=== PATIENT | female | born 1950 | race Asian ===

== ENCOUNTER 2021-03-05 11:26 | Emergency (ER) | payer MEDICARE, MEDICAID ==
[~2021-03-05] VITALS: Ht 147.3 cm; Wt 61.4 kg
[2021-03-05 12:08] VITALS: BP 206/84
== END 2021-03-06 | disposition home or self-care (01) ==
LOC: ER 03-06 00:29
DX: S00.11XA Contusion of right eyelid and periocular area, initial encounter (principal); S00.83XA Contusion of other part of head, initial encounter; S09.8XXA Other specified injuries of head, initial encounter; E11.9 Type 2 diabetes mellitus without complications; W19.XXXA Unspecified fall, initial encounter; Y93.89 Activity, other specified; Y92.89 Other specified places as the place of occurrence of the external cause; Y99.8 Other external cause status
CPT/HCPCS: 70450; 70486; 73130; 99283; 99284

== ENCOUNTER 2023-04-28 09:26 | Inpatient (IN) | payer MEDICARE, MEDICAID ==
[~2023-04-28] VITALS: Ht 147.3 cm; Wt 43.6 kg
[2023-04-28] MEDS ORDERED: iohexol 350MG/ML 100ml bottle IV ONE (09:34)
[2023-04-28 09:57] LABS: BASOPHILS # (AUTO) 0.1 X10'3 (0-0.2); BASOPHILS % (AUTO) 1.6 % (0-1); EOSINOPHILS # (AUTO) 0.1 X10'3 (0-0.9); EOSINOPHILS % (AUTO) 0.7 % (0-6); HEMATOCRIT 35.3 % (35.0-45.0); HEMOGLOBIN 11.9 g/dl (12.0-16.0); LYMPHOCYTES # (AUTO) 1.1 X10'3 (1.1-4.8); LYMPHOCYTES % (AUTO) 13.3 % (21-51); MEAN CORPUSCULAR HEMOGLOBIN 30.6 PG (27.0-31.0); MEAN CORPUSCULAR HGB CONC 33.7 g/dL (33.0-36.5); MEAN PLATELET VOLUME 10.9 FL (7.4-10.4); MONOCYTES # (AUTO) 0.3 X10'3 (0-0.9); MONOCYTES % (AUTO) 3.4 % (2-12); NEUTROPHILS # (AUTO) 6.7 X10'3 (1.8-7.7); PLATELET COUNT 181 X10'3 (140-440); RED BLOOD COUNT 3.87 X10'6 (4.20-5.60); WHITE BLOOD COUNT 8.2 X10'3 (4.5-11.0)
[2023-04-28 09:59] LABS: APTT 31 SECONDS (22-32); PROTHROMBIN TIME 10.7 SECONDS (9.0-12.0)
[2023-04-28 10:03] LABS: ALANINE AMINOTRANSFERASE 35 U/L (12-78); ALBUMIN 2.6 G/DL (3.4-5.0); ALBUMIN/GLOBULIN RATIO 0.5 (1.1-1.5); ALKALINE PHOSPHATASE 96 IU/L (46-116); ANION GAP 10 (8-16); ASPARTATE AMINO TRANSFERASE 48 U/L (10-37); BILIRUBIN,TOTAL 0.3 MG/DL (0.1-1.0); BLOOD UREA NITROGEN 41 MG/DL (7-18); CHLORIDE 103 MMOL/L (99-107); CREATININE 1.17 MG/DL (0.40-0.90); GLUCOSE 216 MG/DL (70-104); POTASSIUM 5.2 MMOL/L (3.5-5.1); SODIUM 138 MMOL/L (135-145); TOTAL CARBON DIOXIDE 25.4 MMOL/L (24-32); TOTAL PROTEIN 7.7 G/DL (6.4-8.2); eCRCL 28 ML/MIN; eGFR 45 ML/MIN
[2023-04-28 10:17] LABS: CREATINE KINASE 90 U/L (26-192); CREATINE KINASE MB 3.4 ng/ml (0.3-3.6)
[2023-04-28 10:20] LABS: THYROID STIMULATING HORMONE 7.19 ulU/ml (0.34-4.50)
[2023-04-28] MEDS ORDERED: labetalol 20mg/4ml (5mg/ml) syringe IV ONE (10:20)
[2023-04-28] MEDS ORDERED: sodium chloride inj. 154 MEQ in Dextrose 10%-water IV solution 961.5 ML IV SCH (10:20)
[2023-04-28 10:26] LABS: PLATELET ESTIMATE NORMAL
[2023-04-28 10:29] LABS: GIANT PLATELET FEW; LARGE PLATELETS FEW
[2023-04-28] MEDS ORDERED: dextrose 5%-water 1,000 ML IV SCH (10:40)
[2023-04-28] MEDS ORDERED: DEXTROSE 15 GM of carb/4 tabs (each vial/BOTTLE has 4 tablets) PO PRN ×4 (11:50→12:10)
[2023-04-28] MEDS ORDERED: dextrose 50%-water 50ml dispensing syringe IV PRN (11:50)
[2023-04-28] MEDS ORDERED: MESSAGE TO PHARMACY PO ONE ×2 (11:50→12:10)
[2023-04-28] MEDS ORDERED: glucagon, human recombinant 1mg kit SUBCUT PRN ×2 (11:50→12:10)
[2023-04-28] MEDS ORDERED: mag hydrox/Alum hydrox/simeth 30ml oral suspension PO PRN (12:10)
[2023-04-28] MEDS ORDERED: potassium Cl 20 mEq SR tablet PO PRN ×2 (12:10)
[2023-04-28] MEDS ORDERED: magnesium 4gm in 100ml NS 100 ML IV PRN (12:10)
[2023-04-28] MEDS ORDERED: magnesium Cl slow-release 64mg tablet PO PRN (12:10)
[2023-04-28] MEDS ORDERED: magnesium 2GM in 50ml NS 50 ML IV PRN (12:10)
[2023-04-28] MEDS ORDERED: magnesium hydroxide 30ml (MOM) UD suspension PO PRN (12:10)
[2023-04-28] MEDS ORDERED: ondansetron/PF 4mg/2ml inj IV PRN (12:10)
[2023-04-28] MEDS ORDERED: potassium Cl 40MEQ/1/2NS 520ml 520 ML IV PRN (12:10)
[2023-04-28] MEDS ORDERED: acetaminophen 325mg tablet PO PRN (12:10)
[2023-04-28] MEDS ORDERED: insulin Lispro (HumaLOG) vial - multi-dose SQ SCH (12:10)
[2023-04-28] MEDS ORDERED: hydrALAZINE 20mg/ml inj. IV ONE (12:40)
[2023-04-28 12:53] LABS: HEMOGLOBIN A1C 7.2 % (4.5-6.2)
[2023-04-28 12:57] LABS: MAGNESIUM 2.6 MG/DL (1.5-2.4); PRO BRAIN NATRIURETIC PEPTIDE 1357 PG/ML (0-125)
[2023-04-28 13:26] LABS: BILIRUBIN,URINE NEGATIVE (Neg); CLARITY,URINE SLIGHTLY CLOUDY (Clear); COLOR,URINE YELLOW (Yellow); GLUCOSE, URINE 250 mg/dl (Neg); KETONES,URINE NEGATIVE (Neg); LEUKOCYTE ESTERASE ,URINE NEGATIVE (Neg); NITRITES, URINE NEGATIVE (Neg); OCCULT BLOOD,URINE TRACE-INTACT (Neg); PH,URINE 6.5 (4.8-8.0); PROTEIN,URINE >=300 mg/dl (Neg); UROBILINOGEN,URINE 0.2 E.U/dL (0.2-1.0)
[2023-04-28 13:31] LABS: UA COLLECTION TYPE STRAIGHT CATH
[2023-04-28 13:46] LABS: RBC,URINE 0-2 /HPF (0-2); WBC,URINE 0-4 /HPF (0-4)
[2023-04-28 13:47] LABS: BACTERIA,URINE FEW /HPF (Neg); MUCUS STRANDS NONE SEEN /LPF (Neg); SQUAMOUS EPITHELIAL CELL,UR NONE SEEN /LPF (FEW)
[2023-04-28] MEDS: dextrose 50%-water 50ml dispensing syringe IV PRN ×5 (14:06→23:10)
[2023-04-28] MEDS ORDERED: normal saline 1000ml 1,000 ML IV SCH (14:25)
[2023-04-28] MEDS ORDERED: LidoCAINE 2% Topical Jelly 11mL syringe TOP ONE (14:25)
[2023-04-28 15:00] VITALS: BP 184/85; PULSE 71; RESP 18; TEMP 97.2; O2SAT 100
[2023-04-28 16:20] LABS: URINE AMPHETAMINE SCREEN NEGATIVE (Neg); URINE BARBITUATE SCREEN NEGATIVE (Neg); URINE BENZODIAZEPINES SCREEN NEGATIVE (Neg); URINE CANNABINOID SCREEN NEGATIVE (Neg); URINE COCAINE SCREEN NEGATIVE (Neg); URINE METHADONE SCREEN NEGATIVE (Neg); URINE OPIATE SCREEN NEGATIVE (Neg); URINE PHENCYCLIDINE SCREEN NEGATIVE (Neg)
[2023-04-28] MEDS ORDERED: dextrose 10% 250ml bag IV ONE (17:10)
[2023-04-28] MEDS ORDERED: Dextrose 10%-water IV solution 1,000 ML IV SCH (17:25)
[2023-04-28 18:00] VITALS: BP 161/83; PULSE 72; RESP 16; TEMP 98.2; O2SAT 100
[2023-04-28 20:00] VITALS: RESP 16; O2SAT 100
[2023-04-28] MEDS: K and/or MAG REPLACEMENT MC SCH (20:00)
[2023-04-28] MEDS: docusate sod 100mg capsule PO SCH (20:00)
[2023-04-28] MEDS ORDERED: DEXTROSE 10 % AND 0.45 % NACL 1,000 ML IV SCH (20:35)
[2023-04-28] MEDS: insulin glargine (Lantus) pen - multi-dose SQ SCH (21:00)
[2023-04-28] MEDS ORDERED: insulin glargine (Lantus) pen - multi-dose SQ SCH (21:00)
[2023-04-28] MEDS: Dextrose 10%-water IV solution 1,000 ML IV SCH (21:15)
[2023-04-28 22:00] VITALS: BP 146/72; PULSE 70; RESP 15; TEMP 97.8; O2SAT 95
[2023-04-29 01:00] LABS: BILIRUBIN,URINE NEGATIVE (Neg); CLARITY,URINE CLEAR (Clear); COLOR,URINE YELLOW (Yellow); GLUCOSE, URINE 250 mg/dl (Neg); KETONES,URINE NEGATIVE (Neg); LEUKOCYTE ESTERASE ,URINE NEGATIVE (Neg); NITRITES, URINE NEGATIVE (Neg); OCCULT BLOOD,URINE NEGATIVE (Neg); PROTEIN,URINE >=300 mg/dl (Neg); UROBILINOGEN,URINE 0.2 E.U/dL (0.2-1.0)
[2023-04-29 01:05] LABS: UA COLLECTION TYPE STRAIGHT CATH
[2023-04-29 01:06] LABS: SQUAMOUS EPITHELIAL CELL,UR FEW /LPF (FEW); WBC,URINE 0-4 /HPF (0-4)
[2023-04-29 01:07] LABS: BACTERIA,URINE NONE SEEN /HPF (Neg); HYALINE CASTS 0-3 /LPF (NEGATIVE); TRANSITIONAL EPI CELLS,URINE FEW /HPF
[2023-04-29 01:14] LABS: D-DIMER 1.86 MG/L FEU (0-0.50)
[2023-04-29 01:15] LABS: OSMOLALITY 289 MOSM/K (280-300)
[2023-04-29 01:30] LABS: CREATINE KINASE 207 U/L (26-192); FREE T4 (FREE THYROXINE) 0.97 NG/DL (0.73-1.40); PHOSPHORUS 3.7 MG/DL (2.3-4.5); PRO BRAIN NATRIURETIC PEPTIDE 1922 PG/ML (0-125)
[2023-04-29] MEDS: dextrose 50%-water 50ml dispensing syringe IV PRN ×2 (01:31→04:34)
[2023-04-29 07:00] VITALS: BP 143/100; PULSE 86; RESP 15; TEMP 97.8; O2SAT 97
[2023-04-29 08:00] VITALS: RESP 15; O2SAT 97
[2023-04-29] MEDS: docusate sod 100mg capsule PO SCH ×2 (08:00→20:00)
[2023-04-29] MEDS ORDERED: glucagon, human recombinant 20 MG in dextrose 5%-water 180 ML IV SCH ×2 (08:00)
[2023-04-29] MEDS: K and/or MAG REPLACEMENT MC SCH ×2 (08:00→20:00)
[2023-04-29] MEDS: methylPREDNISolone sod succ 125mg/2ml vial IV SCH ×2 (08:05→14:00)
[2023-04-29 08:15] LABS: BASOPHILS % (AUTO) 0.4 % (0-1); EOSINOPHILS # (AUTO) 0.3 X10'3 (0-0.9); EOSINOPHILS % (AUTO) 2.9 % (0-6); HEMATOCRIT 35.1 % (35.0-45.0); LYMPHOCYTES # (AUTO) 1.8 X10'3 (1.1-4.8); LYMPHOCYTES % (AUTO) 19.2 % (21-51); MEAN CORPUSCULAR HEMOGLOBIN 30.5 PG (27.0-31.0); MEAN CORPUSCULAR HGB CONC 34.1 g/dL (33.0-36.5); MEAN CORPUSCULAR VOLUME 89.3 FL (78-98); MEAN PLATELET VOLUME 11.2 FL (7.4-10.4); MONOCYTES # (AUTO) 0.6 X10'3 (0-0.9); MONOCYTES % (AUTO) 6.1 % (2-12); NEUTROPHILS # (AUTO) 6.9 X10'3 (1.8-7.7); NEUTROPHILS % (AUTO) 71.4 % (42-75); PLATELET COUNT 155 X10'3 (140-440); RED BLOOD COUNT 3.94 X10'6 (4.20-5.60); RED CELL DISTRIBUTION WIDTH 14.9 % (11.5-14.5); WHITE BLOOD COUNT 9.6 X10'3 (4.5-11.0)
[2023-04-29] MEDS ORDERED: aspirin 81mg tab.chew PO SCH (08:30)
[2023-04-29 08:38] LABS: ALANINE AMINOTRANSFERASE 23 U/L (12-78); ALBUMIN 1.7 G/DL (3.4-5.0); ALBUMIN/GLOBULIN RATIO 0.4 (1.1-1.5); ALKALINE PHOSPHATASE 76 IU/L (46-116); ANION GAP 7 (8-16); ASPARTATE AMINO TRANSFERASE 35 U/L (10-37); BILIRUBIN,TOTAL 0.4 MG/DL (0.1-1.0); BLOOD UREA NITROGEN 27 MG/DL (7-18); BUN/CREATININE RATIO 25.5 (10.0-20.0); CHLORIDE 101 MMOL/L (99-107); CHOL/HDL RATIO 4.7 (0.00-4.99); CHOLESTEROL 307 MG/DL (0-200); CREATININE 1.06 MG/DL (0.40-0.90); GLUCOSE 213 MG/DL (70-104); HDL CHOLESTEROL 66 MG/DL (35-60); LDL CHOLESTEROL 200 MG/DL (50-100); MAGNESIUM 2.2 MG/DL (1.5-2.4); POTASSIUM 3.4 MMOL/L (3.5-5.1); SODIUM 133 MMOL/L (135-145); TOTAL CARBON DIOXIDE 25.1 MMOL/L (24-32); TOTAL PROTEIN 5.6 G/DL (6.4-8.2); TRIGLYCERIDES 80 MG/DL (20-135); eCRCL 31 ML/MIN; eGFR 51 ML/MIN
[2023-04-29 11:00] VITALS: BP 177/85; PULSE 76; RESP 16; TEMP 98.2; O2SAT 98
[2023-04-29] MEDS ORDERED: GABA-530 PO (11:30)
[2023-04-29] MEDS ORDERED: HYDR25TA5 PO (11:30)
[2023-04-29] MEDS ORDERED: DILT-88 PO (11:30)
[2023-04-29] MEDS ORDERED: OMEG100037 PO (11:30)
[2023-04-29] MEDS ORDERED: atorvastatin 20mg tablet PO SCH (11:30)
[2023-04-29] MEDS ORDERED: ATOR80TA PO (11:30)
[2023-04-29] MEDS ORDERED: Fenofibrate PO (11:30)
[2023-04-29] MEDS ORDERED: Lisinopril PO (11:30)
[2023-04-29] MEDS ORDERED: DAPA10TA PO (11:30)
[2023-04-29 11:33] LABS: THYROID STIMULATING HORMONE 8.63 ulU/ml (0.34-4.50)
[2023-04-29] MEDS: aspirin 81mg tab.chew PO SCH (16:07)
[2023-04-29] MEDS: Dextrose 10%-water IV solution 1,000 ML IV SCH (17:15)
[2023-04-29] MEDS: LORazepam 2 mg/ml vial IV PRN ×2 (17:46→23:48)
[2023-04-29 18:00] VITALS: BP 167/86; PULSE 92; RESP 18; TEMP 97.2; O2SAT 99
[2023-04-29 20:00] VITALS: RESP 18; O2SAT 99
[2023-04-29] MEDS: insulin glargine (Lantus) pen - multi-dose SQ SCH (21:00)
[2023-04-29 22:00] VITALS: BP 142/83; PULSE 96; RESP 18; TEMP 97.4; O2SAT 98
[2023-04-30] VITALS (7 sets, daily range): BP systolic 150–238; BP diastolic 59–101; PULSE 71–92; RESP 16–20; TEMP 96.7–98.4; O2SAT 96–100
[2023-04-30] MEDS: diazepam inj 5 MG/ML inj. IV PRN (00:50)
[2023-04-30] MEDS: dextrose 50%-water 50ml dispensing syringe IV PRN (01:43)
[2023-04-30 07:27] LABS: BASOPHILS % (AUTO) 0.4 % (0-1); EOSINOPHILS # (AUTO) 0.2 X10'3 (0-0.9); EOSINOPHILS % (AUTO) 2.1 % (0-6); HEMOGLOBIN 11.5 g/dl (12.0-16.0); LYMPHOCYTES # (AUTO) 2.3 X10'3 (1.1-4.8); LYMPHOCYTES % (AUTO) 24.7 % (21-51); MEAN CORPUSCULAR HGB CONC 34.8 g/dL (33.0-36.5); MEAN PLATELET VOLUME 10.7 FL (7.4-10.4); MONOCYTES # (AUTO) 0.8 X10'3 (0-0.9); MONOCYTES % (AUTO) 8.4 % (2-12); NEUTROPHILS % (AUTO) 64.4 % (42-75); PLATELET COUNT 176 X10'3 (140-440); RED BLOOD COUNT 3.71 X10'6 (4.20-5.60); RED CELL DISTRIBUTION WIDTH 14.6 % (11.5-14.5); WHITE BLOOD COUNT 9.2 X10'3 (4.5-11.0)
[2023-04-30 07:44] LABS: ALANINE AMINOTRANSFERASE 30 U/L (12-78); ALBUMIN 1.8 G/DL (3.4-5.0); ALBUMIN/GLOBULIN RATIO 0.5 (1.1-1.5); ALKALINE PHOSPHATASE 81 IU/L (46-116); ANION GAP 5 (8-16); ASPARTATE AMINO TRANSFERASE 34 U/L (10-37); BILIRUBIN,TOTAL 0.3 MG/DL (0.1-1.0); BLOOD UREA NITROGEN 30 MG/DL (7-18); BUN/CREATININE RATIO 20.7 (10.0-20.0); CALCIUM 8.6 MG/DL (8.5-10.1); CHLORIDE 106 MMOL/L (99-107); CREATININE 1.45 MG/DL (0.40-0.90); GLUCOSE 86 MG/DL (70-104); MAGNESIUM 2.6 MG/DL (1.5-2.4); POTASSIUM 4.5 MMOL/L (3.5-5.1); SODIUM 138 MMOL/L (135-145); TOTAL CARBON DIOXIDE 27.1 MMOL/L (24-32); TOTAL PROTEIN 5.8 G/DL (6.4-8.2); eCRCL 23 ML/MIN; eGFR 35 ML/MIN
[2023-04-30] MEDS: K and/or MAG REPLACEMENT MC SCH ×2 (08:00→20:00)
[2023-04-30] MEDS: docusate sod 100mg capsule PO SCH ×2 (08:00→20:36)
[2023-04-30] MEDS: aspirin 81mg tab.chew PO SCH (09:05)
[2023-04-30] MEDS: atorvastatin 20mg tablet PO SCH (09:05)
[2023-04-30] MEDS: Dextrose 10%-water IV solution 1,000 ML IV SCH (13:15)
[2023-04-30] MEDS ORDERED: clopidogrel 75mg tablet PO SCH (17:10)
[2023-04-30] MEDS ORDERED: clopidogrel 300mg tablet PO ONE (17:40)
[2023-04-30] MEDS: hydrALAZINE 20mg/ml inj. IV PRN (18:36)
[2023-04-30] MEDS: famotidine 20mg tablet PO SCH (20:35)
[2023-04-30] MEDS: insulin glargine (Lantus) pen - multi-dose SQ SCH (21:00)
[2023-05-01 02:00] VITALS: BP 215/98; PULSE 105; RESP 19; TEMP 97.9; O2SAT 98
[2023-05-01] MEDS: diazepam inj 5 MG/ML inj. IV PRN (04:11)
[2023-05-01] MEDS: hydrALAZINE 20mg/ml inj. IV PRN (05:06)
[2023-05-01 06:00] VITALS: BP 145/53; PULSE 92; RESP 24; TEMP 97.6; O2SAT 96
[2023-05-01 07:02] LABS: BASOPHILS % (AUTO) 0.5 % (0-1); EOSINOPHILS # (AUTO) 0.3 X10'3 (0-0.9); EOSINOPHILS % (AUTO) 3.3 % (0-6); HEMATOCRIT 35.4 % (35.0-45.0); HEMOGLOBIN 12.3 g/dl (12.0-16.0); LYMPHOCYTES # (AUTO) 1.2 X10'3 (1.1-4.8); LYMPHOCYTES % (AUTO) 14.1 % (21-51); MEAN CORPUSCULAR HEMOGLOBIN 30.6 PG (27.0-31.0); MEAN CORPUSCULAR HGB CONC 34.7 g/dL (33.0-36.5); MEAN CORPUSCULAR VOLUME 88.3 FL (78-98); MEAN PLATELET VOLUME 10.7 FL (7.4-10.4); MONOCYTES # (AUTO) 0.6 X10'3 (0-0.9); MONOCYTES % (AUTO) 7.8 % (2-12); NEUTROPHILS # (AUTO) 6.1 X10'3 (1.8-7.7); NEUTROPHILS % (AUTO) 74.3 % (42-75); PLATELET COUNT 173 X10'3 (140-440); RED BLOOD COUNT 4.01 X10'6 (4.20-5.60); RED CELL DISTRIBUTION WIDTH 14.8 % (11.5-14.5); WHITE BLOOD COUNT 8.3 X10'3 (4.5-11.0)
[2023-05-01 07:32] LABS: ALANINE AMINOTRANSFERASE 39 U/L (12-78); ALBUMIN/GLOBULIN RATIO 0.5 (1.1-1.5); ALKALINE PHOSPHATASE 110 IU/L (46-116); ANION GAP 5 (8-16); ASPARTATE AMINO TRANSFERASE 48 U/L (10-37); BILIRUBIN,TOTAL 0.4 MG/DL (0.1-1.0); BLOOD UREA NITROGEN 38 MG/DL (7-18); BUN/CREATININE RATIO 26.4 (10.0-20.0); CALCIUM 8.5 MG/DL (8.5-10.1); CHLORIDE 108 MMOL/L (99-107); CREATININE 1.44 MG/DL (0.40-0.90); GLUCOSE 136 MG/DL (70-104); MAGNESIUM 2.3 MG/DL (1.5-2.4); POTASSIUM 4.1 MMOL/L (3.5-5.1); SODIUM 138 MMOL/L (135-145); TOTAL CARBON DIOXIDE 24.6 MMOL/L (24-32); TOTAL PROTEIN 6.2 G/DL (6.4-8.2); eCRCL 23 ML/MIN; eGFR 36 ML/MIN
[2023-05-01] MEDS: docusate sod 100mg capsule PO SCH (08:00)
[2023-05-01] MEDS: K and/or MAG REPLACEMENT MC SCH (08:00)
[2023-05-01] MEDS ORDERED: clopidogrel 75mg tablet PO SCH (08:00)
[2023-05-01] MEDS: famotidine 20mg tablet PO SCH (10:50)
[2023-05-01] MEDS: atorvastatin 20mg tablet PO SCH (10:56)
[2023-05-01 11:00] VITALS: BP 157/74; PULSE 94; RESP 12; TEMP 97.7; O2SAT 100
[2023-05-01] MEDS: aspirin 81mg tab.chew PO SCH (11:04)
[2023-05-01] MEDS ORDERED: CLOP75TA34 PO (11:53)
[2023-05-01] MEDS ORDERED: ASPI81TA53 PO (11:53)
[2023-05-01] MEDS ORDERED: famotidine 20mg tablet PO SCH (13:34)
[2023-05-01 13:55] LABS: LARGE PLATELETS FEW; PLATELET ESTIMATE NORMAL
[2023-05-01 15:00] VITALS: BP 180/70; PULSE 95; RESP 18; TEMP 98.1; O2SAT 100
[2023-05-01 17:16] LABS: C-PEPTIDE, SERUM 1.5 ng/mL (1.1-4.4); INSULIN 7.8 uIU/mL (2.6-24.9)
== END 2023-05-01 17:21 | disposition home health service (06) | DRG 64 ==
LOC: ER 09:26 → PCU 3S 12:16
PROVIDERS: ADMIT Internal Medicine; ATTEND Internal Medicine
PROC: BW291ZZ Computerized Tomography (CT Scan) of Head and Neck using Low Osmolar Contrast (ICD-10-PCS; principal; 2023-04-28)
DX: I63.9 Cerebral infarction, unspecified (principal); N17.0 Acute kidney failure with tubular necrosis; I16.1 Hypertensive emergency; E87.1 Hypo-osmolality and hyponatremia; E11.649 Type 2 diabetes mellitus with hypoglycemia without coma; I65.21 Occlusion and stenosis of right carotid artery; I12.9 Hypertensive chronic kidney disease with stage 1 through stage 4 chronic kidney disease, or unspecified chronic kidney disease; E11.22 Type 2 diabetes mellitus with diabetic chronic kidney disease; R29.810 Facial weakness; N18.9 Chronic kidney disease, unspecified; E03.9 Hypothyroidism, unspecified; E87.5 Hyperkalemia; E78.5 Hyperlipidemia, unspecified; E88.09 Other disorders of plasma-protein metabolism, not elsewhere classified; F03.90 Unspecified dementia, unspecified severity, without behavioral disturbance, psychotic disturbance, mood disturbance, and anxiety; R29.713 NIHSS score 13; Z88.8 Allergy status to other drugs, medicaments and biological substances; Z79.02 Long term (current) use of antithrombotics/antiplatelets; Z79.4 Long term (current) use of insulin; Z86.73 Personal history of transient ischemic attack (TIA), and cerebral infarction without residual deficits; Z79.82 Long term (current) use of aspirin; Z79.899 Other long term (current) drug therapy
CPT/HCPCS: 36415; 70450; 70496; 70498; 70551; 71045; 80053; 80061; 80305; 81001; 82550; 82553; 82948; 83036; 83525; 83605; 83735; 83880; 83930; 84100; 84145; 84439; 84443; 84480; 84484; 84681; 85008; 85025; 85379; 85610; 85730; 87040; 87081; 87088; 92508; 92616; 93306; 97110; 97161; 97530; 99285; A4314; A4353; A5200; G0378; J0360; J1815; J2060; J2930; J3360; J3490; J7070; Q9967

== ENCOUNTER 2023-05-01 20:36 | Emergency (ER) | payer MEDICARE, MEDICAID ==
[~2023-05-01] VITALS: Ht 152.4 cm; Wt 43.1 kg
[~2023-05-01 20:36] MED LIST: ASPI81TA53 PO; ATOR80TA PO; CLOP75TA34 PO; DAPA10TA PO; DILT-88 PO; Fenofibrate PO; GABA-530 PO; HYDR25TA5 PO; Lisinopril PO; OMEG100037 PO; epiNEPHrine 0.1mg/ml 10ml syringe ONE; etomidate 2mg/ml inj. ONE; rocuronium 10mg/ml inj IV ONE; sod chloride 0.9% 10ml flush syringe IV ONE
[2023-05-01] MEDS ORDERED: LIDOcaine 1% W/epiNEPHrine 1:100,000 20ml vial SQ ONE (21:20)
[2023-05-01] MEDS: propofol 1000mg/100ml bottle 100 ML IV PRN ×2 (21:50→22:18)
[2023-05-01] MEDS: propofol 1000mg/100ml bottle 100 ML IV ONE (21:51)
[2023-05-01] MEDS: LIDOCAINE 1%/EPI 1:100,000 inj. 10 ML multi-dose vial SQ ONE (21:51)
[2023-05-01 21:56] VITALS: BP 286/129; PULSE 104; RESP 16; O2SAT 98
[2023-05-01 22:04] LABS: BASOPHILS % (AUTO) 0.4 % (0-1); EOSINOPHILS # (AUTO) 0.2 X10'3 (0-0.9); EOSINOPHILS % (AUTO) 1.7 % (0-6); HEMATOCRIT 26.5 % (35.0-45.0); HEMOGLOBIN 9.2 g/dl (12.0-16.0); LYMPHOCYTES # (AUTO) 2.2 X10'3 (1.1-4.8); LYMPHOCYTES % (AUTO) 23.5 % (21-51); MEAN CORPUSCULAR HGB CONC 34.6 g/dL (33.0-36.5); MEAN CORPUSCULAR VOLUME 89.5 FL (78-98); MONOCYTES % (AUTO) 10.8 % (2-12); NEUTROPHILS # (AUTO) 6.1 X10'3 (1.8-7.7); NEUTROPHILS % (AUTO) 63.6 % (42-75); PLATELET COUNT 206 X10'3 (140-440); RED BLOOD COUNT 2.96 X10'6 (4.20-5.60); RED CELL DISTRIBUTION WIDTH 14.6 % (11.5-14.5); WHITE BLOOD COUNT 9.6 X10'3 (4.5-11.0)
[2023-05-01 22:15] LABS: ALANINE AMINOTRANSFERASE 32 U/L (12-78); ALBUMIN 1.6 G/DL (3.4-5.0); ALBUMIN/GLOBULIN RATIO 0.5 (1.1-1.5); ALKALINE PHOSPHATASE 87 IU/L (46-116); ANION GAP 8 (8-16); ASPARTATE AMINO TRANSFERASE 30 U/L (10-37); BILIRUBIN,TOTAL 0.3 MG/DL (0.1-1.0); BLOOD UREA NITROGEN 42 MG/DL (7-18); BUN/CREATININE RATIO 28.4 (10.0-20.0); CALCIUM 7.4 MG/DL (8.5-10.1); CHLORIDE 105 MMOL/L (99-107); CREATININE 1.48 MG/DL (0.40-0.90); ETHANOL < 10 MG/DL (<10); GLUCOSE 251 MG/DL (70-104); POTASSIUM 4.4 MMOL/L (3.5-5.1); SODIUM 136 MMOL/L (135-145); TOTAL CARBON DIOXIDE 23.3 MMOL/L (24-32); eCRCL 23 ML/MIN; eGFR 35 ML/MIN
[2023-05-01] MEDS: niCARDipine-NS 40mg/200ml IVPB 200 ML IV SCH (22:16)
[2023-05-01] MEDS ORDERED: etomidate 2mg/ml inj. IV ONE (22:55)
[2023-05-01 23:05] LABS: APTT 29 SECONDS (22-32); PROTHROMBIN TIME 10.7 SECONDS (9.0-12.0)
[2023-05-01] MEDS ORDERED: midazolam 1 mg/ML 2ml injection ONE (23:07)
[2023-05-01] MEDS: MIDAZolam 1mg/ml 10ml vial IV ONE (23:07)
[2023-05-01] MEDS ORDERED: midazolam 1 mg/ML 2ml injection IV ONE (23:10)
[2023-05-02 00:33] VITALS: BP 122/63; PULSE 92; RESP 15; TEMP 98.1; O2SAT 100
== END 2023-05-01 22:52 | disposition short-term general hospital (02) ==
LOC: ER 20:37
DX: S01.01XA Laceration without foreign body of scalp, initial encounter (principal); D64.9 Anemia, unspecified; I62.9 Nontraumatic intracranial hemorrhage, unspecified; J96.90 Respiratory failure, unspecified, unspecified whether with hypoxia or hypercapnia; I10 Essential (primary) hypertension; E11.9 Type 2 diabetes mellitus without complications; Z86.73 Personal history of transient ischemic attack (TIA), and cerebral infarction without residual deficits; Z88.8 Allergy status to other drugs, medicaments and biological substances; Z79.82 Long term (current) use of aspirin; Z79.899 Other long term (current) drug therapy; W19.XXXA Unspecified fall, initial encounter; Z91.81 History of falling; Y93.89 Activity, other specified; Y92.89 Other specified places as the place of occurrence of the external cause; Y99.8 Other external cause status
CPT/HCPCS: 12002; 31500; 36415; 70450; 71045; 72125; 80053; 80320; 82948; 84145; 85025; 85610; 85730; 93005; 94002; 94799; 99291; 99292; A6446; A6449; C1758; J0171; J2250; J2704; J3490